=== PATIENT | female | born 1970 | race Caucasian/White ===

== ENCOUNTER 2018-08-08 09:15 | Inpatient (IN) | payer BC ==
[~2018-08-08] VITALS: Ht 165.1 cm; Wt 64.4 kg
[~2018-08-08 09:15] MED LIST: ALPR0.254 PO; BACL20TA PO; CITA40TA5 PO; DIPH50CA26 PO; FENTANYL PF 250 MCG/5ML ONE; MIDAZOLAM 1 MG/ML, 2ML ONE; MULT-516 PO; TRAM50TA2 PO
[2018-08-08] MEDS ORDERED: ACETAMINOPHEN 500 MG TABLET PO ONE (09:30)
[2018-08-08] MEDS ORDERED: SCOPOLAMINE PATCH, 1.5MG PATCH.TD72 TD ONE (09:30)
[2018-08-08] MEDS ORDERED: GABAPENTIN 300 MG CAPSULE PO ONE (09:30)
[2018-08-08] MEDS ORDERED: LACTATED RINGERS 1,000 ML IV SCH (09:41)
[2018-08-08] MEDS ORDERED: BUPIVACAINE 0.25% ONE (09:49)
[2018-08-08] MEDS ORDERED: LIDOCAINE/PF 0.5% ,50ML ONE (09:49)
[2018-08-08] MEDS ORDERED: VANCOMYCIN 500 MG ONE (09:50)
[2018-08-08] MEDS ORDERED: THROMBIN 5,000 UNIT VIAL TP ONE (09:50)
[2018-08-08] MEDS ORDERED: EPINEPHRINE 1 MG/ML, 1ML ONE (09:50)
[2018-08-08] MEDS ORDERED: VANCOMYCIN 1,000 MG ONE (09:58)
[2018-08-08] MEDS ORDERED: ONDANSETRON 2MG/ML, 2ML ONE (10:04)
[2018-08-08] MEDS ORDERED: SUCCINYLCHOLINE 20 MG/ML, 10ML ONE (10:04)
[2018-08-08] MEDS ORDERED: DEXAMETHASONE 4 MG/ML, 5ML ONE (10:04)
[2018-08-08] MEDS ORDERED: ROCURONIUM 10 MG/ML,10ML ONE (10:04)
[2018-08-08] MEDS ORDERED: CEFAZOLIN 1,000 MG ONE (10:04)
[2018-08-08] MEDS ORDERED: PROPOFOL 10 MG/ML, 20ML ONE (10:04)
[2018-08-08] MEDS ORDERED: ALBUTEROL SULFATE 2.5 MG/3 ML NPPB PRN (11:00)
[2018-08-08] MEDS ORDERED: PROMETHAZINE 25 MG/ML, 1ML IV PRN (11:00)
[2018-08-08] MEDS ORDERED: FENTANYL PF 100 MCG/2ML IV PRN (11:00)
[2018-08-08] MEDS ORDERED: hydrALAzine 20 MG/ML, 1ML IV PRN (11:00)
[2018-08-08] MEDS ORDERED: KETOROLAC 30 MG/1 ML IV PRN (11:00)
[2018-08-08] MEDS ORDERED: LABETALOL 5MG/ML, 20ML IV PRN (11:00)
[2018-08-08] MEDS ORDERED: ONDANSETRON 2MG/ML, 2ML IVPush PRN (11:00)
[2018-08-08] MEDS ORDERED: METOCLOPRAMIDE 5 MG/ML, 2ML IV PRN (11:00)
[2018-08-08] MEDS ORDERED: OXYcodone 5 MG/5 ML ORAL.SOL UDC PO PRN (11:00)
[2018-08-08] MEDS ORDERED: MEPERIDINE/PF 25MG/0.5ML IVPush PRN (11:00)
[2018-08-08] MEDS ORDERED: HYDROmorphone 1 MG/ML, 1ML IV PRN (11:00)
[2018-08-08] MEDS ORDERED: TRIAMCINOLONE ACETONIDE 40 MG/ML, 1ML ONE (11:32)
[2018-08-08 14:04] VITALS: BP 131/83
[2018-08-08] MEDS ORDERED: ONDANSETRON 2MG/ML, 2ML IV PRN (14:30)
[2018-08-08] MEDS ORDERED: DIPHENHYDRAMINE 25 MG CAPSULE PO PRN (14:30)
[2018-08-08] MEDS ORDERED: MAGNESIUM HYDROXIDE 8%, 30ML UDC PO PRN (14:30)
[2018-08-08] MEDS ORDERED: BISACODYL 10 MG SUPP PR PRN (14:30)
[2018-08-08] MEDS ORDERED: morphine SULFATE 10 MG/ML, 1ML IV PRN (14:30)
[2018-08-08] MEDS ORDERED: PROMETHAZINE 25 MG/ML, 1ML IM PRN (14:30)
[2018-08-08] MEDS: HYDROcodone/APAP 5/325 TABLET PO PRN ×2 (15:55→16:49)
[2018-08-08] MEDS: D5%-0.9% NACL+KCL 20MEQ 1,000 ML IV SCH (17:40)
[2018-08-08] MEDS: CEFAZOLIN PMX 1GM/50ML 50 ML IVPB SCH (18:25)
[2018-08-08] MEDS: BACLOFEN 10 MG TABLET PO SCH (20:17)
[2018-08-08 21:45] VITALS: BP 105/73
[2018-08-08] MEDS: HYDROcodone/APAP 10/325 MG TABLET PO PRN (23:16)
[2018-08-09 01:06] VITALS: BP 107/70
[2018-08-09] MEDS: CEFAZOLIN PMX 1GM/50ML 50 ML IVPB SCH (02:30)
[2018-08-09] MEDS: D5%-0.9% NACL+KCL 20MEQ 1,000 ML IV SCH ×2 (02:30→13:00)
[2018-08-09 04:26] VITALS: BP 117/76
[2018-08-09] MEDS: HYDROcodone/APAP 10/325 MG TABLET PO PRN ×2 (06:30→11:37)
[2018-08-09] MEDS: BACLOFEN 10 MG TABLET PO SCH (08:19)
[2018-08-09 08:51] VITALS: BP 109/64
[2018-08-09] MEDS ORDERED: SENNA/DOCUSATE TABLET PO SCH (09:00)
[2018-08-09] MEDS ORDERED: MULTIVITAMIN 1 TABLET PO SCH (09:00)
[2018-08-09] MEDS ORDERED: CITALOPRAM 20 MG TABLET PO SCH (09:00)
[2018-08-09] MEDS ORDERED: HYDR-3307 PO (13:54)
== END 2018-08-09 14:03 | disposition home or self-care (01) | DRG 473 ==
LOC: ORIP 09:15 → 4NOR 13:57 → DCLOUNGE 08-09 13:50
PROVIDERS: ADMIT Orthopaedic Surgery Orthopaedic Surgery of the Spine; ATTEND Orthopaedic Surgery Orthopaedic Surgery of the Spine
PROC: 0RP104Z Removal of Internal Fixation Device from Cervical Vertebral Joint, Open Approach (ICD-10-PCS; 2018-08-08)
PROC: 0RB30ZZ Excision of Cervical Vertebral Disc, Open Approach (ICD-10-PCS; 2018-08-08)
PROC: 0RG10K0 Fusion of Cervical Vertebral Joint with Nonautologous Tissue Substitute, Anterior Approach, Anterior Column, Open Approach (ICD-10-PCS; principal; 2018-08-08 11:00)
DX: M48.02 Spinal stenosis, cervical region (principal); I10 Essential (primary) hypertension; M79.7 Fibromyalgia; M47.22 Other spondylosis with radiculopathy, cervical region; Z88.8 Allergy status to other drugs, medicaments and biological substances
CPT/HCPCS: 72040; C1713; G0378; J0171; J0690; J1100; J2001; J2250; J2405; J2704; J3010; J3301; J3370; J3490; C1762; J0330; J3480; J7120; Q0163

== ENCOUNTER 2018-09-25 05:36 | Inpatient (IN) | payer BC ==
[~2018-09-25] VITALS: Ht 165.1 cm; Wt 63.8 kg
[~2018-09-25 05:36] MED LIST changes: -FENTANYL PF 250 MCG/5ML ONE; +HYDR-3307 PO; -MIDAZOLAM 1 MG/ML, 2ML ONE
[2018-09-25 06:40] LABS: HCG UR SG 1.017 (1.003-1.030)
[2018-09-25] MEDS ORDERED: LACTATED RINGERS 1,000 ML IV SCH (06:43)
[2018-09-25] MEDS ORDERED: THROMBIN 5,000 UNIT VIAL TP ONE (06:54)
[2018-09-25] MEDS ORDERED: HEPARIN 1,000 UNITS/ML, 30ML ONE (06:54)
[2018-09-25] MEDS ORDERED: LIDOCAINE 1%-EPI 1:100K, 30ML ONE (06:55)
[2018-09-25] MEDS ORDERED: BACITRACIN 50,000 UNIT ONE (06:55)
[2018-09-25] MEDS ORDERED: VANCOMYCIN 1,000 MG ONE (06:55)
[2018-09-25] MEDS ORDERED: FENTANYL PF 250 MCG/5ML ONE ×2 (07:20→08:18)
[2018-09-25] MEDS ORDERED: MIDAZOLAM 1 MG/ML, 2ML ONE (07:20)
[2018-09-25] MEDS ORDERED: ROCURONIUM 10MG/ML,5ML ONE (07:25)
[2018-09-25] MEDS ORDERED: DEXAMETHASONE 4 MG/ML, 1ML ONE (07:25)
[2018-09-25] MEDS ORDERED: PROPOFOL 10 MG/ML, 20ML ONE (07:25)
[2018-09-25] MEDS ORDERED: SUCCINYLCHOLINE 20 MG/ML, 10ML ONE (07:25)
[2018-09-25] MEDS ORDERED: ONDANSETRON 2MG/ML, 2ML ONE (07:25)
[2018-09-25] MEDS ORDERED: NEOSTIGMINE 1 MG/ML, 10ML ONE (07:25)
[2018-09-25] MEDS ORDERED: CEFAZOLIN 1,000 MG ONE (07:25)
[2018-09-25] MEDS ORDERED: GLYCOPYRROLATE 0.2MG/1ML, 5ML ONE (07:25)
[2018-09-25] MEDS ORDERED: GABAPENTIN 300 MG CAPSULE PO ONE (07:30)
[2018-09-25] MEDS ORDERED: FAMOTIDINE 20 MG TABLET PO ONE (07:30)
[2018-09-25] MEDS ORDERED: ACETAMINOPHEN 500 MG TABLET PO ONE (07:30)
[2018-09-25] MEDS ORDERED: ONDANSETRON ODT 8 MG PO ONE (07:30)
[2018-09-25] MEDS ORDERED: DIAZEPAM 5 MG/ML, 2ML IVPush PRN (08:30)
[2018-09-25] MEDS ORDERED: MEPERIDINE/PF 25MG/0.5ML IVPush PRN (08:30)
[2018-09-25] MEDS ORDERED: ONDANSETRON ODT 8 MG PO PRN (08:30)
[2018-09-25] MEDS ORDERED: ONDANSETRON 2MG/ML, 2ML IV PRN ×2 (08:30→13:00)
[2018-09-25] MEDS ORDERED: PROCHLORPERAZINE 5 MG/ML, 2ML IM PRN (08:30)
[2018-09-25] MEDS ORDERED: OXYcodone 5 MG/5 ML ORAL.SOL UDC ONE ×2 (09:22→09:40)
[2018-09-25] MEDS ORDERED: FENTANYL PF 100 MCG/2ML ONE (09:22)
[2018-09-25] MEDS: FENTANYL PF 100 MCG/2ML IV PRN ×2 (09:24→09:29)
[2018-09-25] MEDS: OXYcodone 5 MG/5 ML ORAL.SOL UDC PO PRN ×2 (09:27→09:42)
[2018-09-25] MEDS ORDERED: HYDROmorphone 2 MG/ML, 1ML ONE ×2 (09:31→10:38)
[2018-09-25] MEDS: HYDROmorphone 1 MG/ML, 1ML IV PRN ×7 (09:33→11:18)
[2018-09-25] MEDS ORDERED: METHOCARBAMOL 1,000 MG in DEXTROSE 5% 100 ML IV ONE (11:00)
[2018-09-25] MEDS ORDERED: PROMETHAZINE 25 MG/ML, 1ML IM PRN (13:00)
[2018-09-25] MEDS ORDERED: morphine SULFATE 10 MG/ML, 1ML IV PRN (13:00)
[2018-09-25] MEDS ORDERED: DIAZEPAM 5 MG TABLET PO PRN (13:00)
[2018-09-25] MEDS ORDERED: HYDROcodone/APAP 10/325 MG TABLET PO PRN (13:00)
[2018-09-25] MEDS ORDERED: MAGNESIUM HYDROXIDE 8%, 30ML UDC PO PRN (13:00)
[2018-09-25] MEDS ORDERED: BISACODYL 10 MG SUPP PR PRN (13:00)
[2018-09-25] MEDS ORDERED: DIAZEPAM 5 MG/ML, 2ML IV PRN (13:00)
[2018-09-25] MEDS ORDERED: HYDROcodone/APAP 5/325 TABLET PO PRN (13:00)
[2018-09-25] MEDS ORDERED: HYDROmorphone 1 MG/ML, 1ML IV PRN (13:00)
[2018-09-25 14:00] VITALS: BP 112/63
[2018-09-25] MEDS: OXYcodone/APAP 5/325MG TABLET PO PRN ×3 (14:14→20:08)
[2018-09-25] MEDS: D5%-0.9% NACL+KCL 20MEQ 1,000 ML IV SCH (14:14)
[2018-09-25] MEDS: METOCLOPRAMIDE 5 MG/ML, 2ML IV SCH ×2 (14:15→20:08)
[2018-09-25] MEDS: CEFAZOLIN PMX 1GM/50ML 50 ML IVPB SCH (16:21)
[2018-09-25] MEDS: METHOCARBAMOL 750 MG in DEXTROSE 5% 100 ML IV SCH (17:05)
[2018-09-25] MEDS: BACLOFEN 10 MG TABLET PO SCH (20:08)
[2018-09-25 20:40] VITALS: BP 103/69
[2018-09-25 23:42] VITALS: BP 97/61
[2018-09-26] MEDS: CEFAZOLIN PMX 1GM/50ML 50 ML IVPB SCH (00:07)
[2018-09-26] MEDS: D5%-0.9% NACL+KCL 20MEQ 1,000 ML IV SCH ×2 (00:08→12:00)
[2018-09-26] MEDS: OXYcodone/APAP 5/325MG TABLET PO PRN ×4 (00:08→13:20)
[2018-09-26] MEDS: METHOCARBAMOL 750 MG in DEXTROSE 5% 100 ML IV SCH ×2 (01:36→08:47)
[2018-09-26] MEDS: METOCLOPRAMIDE 5 MG/ML, 2ML IV SCH ×3 (01:53→14:00)
[2018-09-26 02:44] VITALS: BP 108/71
[2018-09-26] MEDS ORDERED: ENOXAPARIN 40 MG/0.4 ML SQ SCH (06:00)
[2018-09-26 06:15] LABS: BASOPHILS # (AUTO) 0.02 x10^3/uL (0-0.1); BASOPHILS % (AUTO) 0 % (0-1); EOSINOPHILS # (AUTO) 0.15 x10^3/uL (0-0.4); EOSINOPHILS % (AUTO) 2 % (1-7); LYMPHOCYTES # (AUTO) 2.41 x10^3/uL (1-3.4); LYMPHOCYTES % (AUTO) 29 % (22-44); MD NO; MEAN CORPUSCULAR HEMOGLOBIN 31.6 pg (27.0-34.8); MEAN CORPUSCULAR HGB CONC 33.5 g/dL (32.4-35.8); MEAN CORPUSCULAR VOLUME 94.3 fL (80-100); MEAN PLATELET VOLUME 9.8 fL (7.4-10.4); MONOCYTES # (AUTO) 0.87 x10^3/uL (0.2-0.8); MONOCYTES % (AUTO) 10 % (2-9); NEUTROPHILS % (AUTO) 59 % (42-75); PLATELET COUNT 155 x10^3/uL (130-400); RED BLOOD COUNT 3.99 x10^6/uL (3.82-5.3); RED CELL DISTRIBUTION WIDTH 14.7 % (9.6-15.2)
[2018-09-26 06:26] LABS: CHLORIDE 112 mmol/L (98-107)
[2018-09-26 06:34] LABS: ANION GAP 6 mmol/L (5-15); CALCIUM 8.4 mg/dL (8.5-10.1); CREATININE 0.68 mg/dL (0.55-1.02)
[2018-09-26 07:19] VITALS: BP 138/83
[2018-09-26] MEDS: BACLOFEN 10 MG TABLET PO SCH (08:47)
[2018-09-26] MEDS ORDERED: SENNA/DOCUSATE TABLET PO SCH (09:00)
[2018-09-26] MEDS ORDERED: OXYC-307 PO (16:00)
[2018-09-27] MEDS ORDERED: METHOCARBAMOL 750 MG TABLET PO SCH ×2 (09:00→17:00)
== END 2018-09-26 17:05 | disposition home or self-care (01) | DRG 460 ==
LOC: ORIP 05:36 → 4NOR 11:45 → DCLOUNGE 09-26 16:55
PROVIDERS: ADMIT Orthopaedic Surgery Orthopaedic Surgery of the Spine; ATTEND Orthopaedic Surgery Orthopaedic Surgery of the Spine
PROC: 0SB20ZZ Excision of Lumbar Vertebral Disc, Open Approach (ICD-10-PCS; 2018-09-25)
PROC: 0SG00A0 Fusion of Lumbar Vertebral Joint with Interbody Fusion Device, Anterior Approach, Anterior Column, Open Approach (ICD-10-PCS; principal; 2018-09-25 07:30)
DX: M47.26 Other spondylosis with radiculopathy, lumbar region (principal); M43.16 Spondylolisthesis, lumbar region; I10 Essential (primary) hypertension; G89.4 Chronic pain syndrome; J44.9 Chronic obstructive pulmonary disease, unspecified; M79.7 Fibromyalgia; F17.200 Nicotine dependence, unspecified, uncomplicated; Z82.49 Family history of ischemic heart disease and other diseases of the circulatory system; Z88.8 Allergy status to other drugs, medicaments and biological substances
CPT/HCPCS: 36415; 72100; 74018; J3490; 80048; 81025; 85025; C1713; G0378; J0690; J1100; J1170; J1644; J1650; J2250; J2405; J2704; J2710; J3010; J3360; J3370; Q0162; C1762; J0330; J2765; J2800; J3480; J7120